=== PATIENT | male | born 1975 | race Caucasian/White ===

== ENCOUNTER 2017-09-24 22:38 | Emergency (ER) | payer SELFPAY ==
[~2017-09-24] VITALS: Ht 182.9 cm; Wt 83.9 kg
--- NOTE | 2017-09-24 22:56 | NUR ---
Dr. Oseguera at bedside for MSE.
--- NOTE | 2017-09-24 22:58 | NUR ---
Pt ambulated to ER with steady gait, has speech difficulty, unable to remember why they checked into to ER. Reports if he can just stay here and sleep.
--- NOTE | 2017-09-24 23:04 | NUR ---
Patient discharged to home in stable conditon. Written and verbal after care instructions given. Patient verbalizes understanding of instructions. Patient ambulated out of ER with steady gait, no acute signs of distress, VSS, all belongings taken.
[2017-09-24 23:06] VITALS: BP 117/74
== END 2017-09-24 23:06 | disposition home or self-care (01) ==
LOC: ER 22:41
DX: F15.10 Other stimulant abuse, uncomplicated (principal); Z59.0 Homelessness
CPT/HCPCS: 99281; A4663

== ENCOUNTER 2017-09-25 06:22 | Emergency (ER) | payer OTHER ==
[~2017-09-25] VITALS: Ht 182.9 cm; Wt 81.6 kg
--- NOTE | 2017-09-25 06:30 | NUR ---
Dr. Martins at bedside for MSE.
--- NOTE | 2017-09-25 06:45 | NUR ---
Pt refusing to leave hospital after discharge, security called for assistance.
--- NOTE | 2017-09-25 07:00 | NUR ---
Security escorted patient out of hospital premises.
[2017-09-25 07:03] VITALS: BP 147/87
== END 2017-09-25 07:04 | disposition home or self-care (01) ==
LOC: ER 06:22
DX: F15.10 Other stimulant abuse, uncomplicated (principal); Z59.0 Homelessness
CPT/HCPCS: 99283; A4663